=== PATIENT | male | born 1960 | race Caucasian/White ===

== ENCOUNTER 2017-02-14 14:30 | Inpatient (IN) | payer OTHER ==
[2017-02-13 16:40] VITALS: Ht 152.4 cm; Wt 49.8 kg
[~2017-02-14] VITALS: Ht 152.4 cm; Wt 49.8 kg
[2017-02-14] VITALS (9 sets, daily range): BP systolic 121–169; BP diastolic 52–88; PULSE 46–70; RESP 7–16
[~2017-02-14 14:30] MED LIST: ASPI-535 PO; ATOR40TA68 PO; CEFAZOLIN 1 GM INJ ONE; CLON-429 PO; DEXAMETHASONE 4 MG/ML 1 ML INJ ONE; DIVA500T7 PO; GLYCOPYRROLATE 0.4 MG INJ ONE; HYDR-3612 PO; LIDOCAINE 2% (SDV) 5 ML INJ ONE; MIRT45TA PO; NEOSTIGMINE 3 MG/3 ML SYRINGE ONE; ONDANSETRON 4 MG INJ ONE; QUET200T4 PO; TEMA30CA6 PO; TRAZ50TA18 PO
[2017-02-14 15:41] LABS: BASOPHIL # 0.1 10^3/ul (0.0-0.1); BASOPHILS % 0.5 % (0.0-2.0); EOSINOPHILS # 0.2 10^3/ul (0.0-0.5); EOSINOPHILS % 1.4 % (0.0-7.0); HEMATOCRIT 45.3 % (42.0-52.0); HEMOGLOBIN 15.5 g/dl (14.0-18.0); LYMPHOCYTES # 3.6 10^3/ul (0.8-2.9); LYMPHOCYTES % 27.1 % (15.0-51.0); MEAN CORPUSCULAR HEMOGLOBIN 33.7 pg (29.0-33.0); MEAN CORPUSCULAR HGB CONC 34.2 g/dl (32.0-37.0); MEAN CORPUSCULAR VOLUME 98.5 fl (82.0-101.0); MONOCYTE # 0.7 10^3/ul (0.3-0.9); MONOCYTES % 5.3 % (0.0-11.0); NEUTROPHIL # 8.7 10^3/ul (1.6-7.5); PLATELET COUNT 258 10^3/UL (140-415); RED CELL DISTRIBUTION WIDTH 13.2 % (11.5-14.5); WHITE BLOOD COUNT 13.3 10^3/ul (4.8-10.8)
[2017-02-14 15:56] LABS: INR 1.02; PROTIME 13.5 Sec (11.9-14.9); PT RATIO 1.1
[2017-02-14 15:57] LABS: PARTIAL THROMBOPLASTIN TIME 32.6 Sec (25.0-35.0)
[2017-02-14 16:00] LABS: ALBUMIN/GLOBULIN RATIO 1.08; BILIRUBIN,INDIRECT 0.3 mg/dl (0-1.1); BILIRUBIN,TOTAL 0.3 mg/dl (0.2-1.3); CALCIUM 9.7 mg/dl (8.4-10.2); CREATININE 1.07 mg/dl (0.61-1.24); POTASSIUM 4.8 mmol/L (3.5-5.1); TOTAL PROTEIN 7.7 g/dl (6.1-8.1)
[2017-02-14 16:04] LABS: HOLD TRANSMISSIONS 1
--- NOTE | 2017-02-14 16:11 | RADRPT ---
Vent Rate: 58 bpm RR Interval: 0 msec AL Interval: 138 msec QRS Duration: 86 msec QT Interval: 378 msec QTC Interval: 371 msec P-R-T [place]: 68 - 43 - 66 degrees Sinus bradycardia Otherwise normal ECG Electronically Signed By: Sae Keith [id number]
[2017-02-14] MEDS ORDERED: CEFAZOLIN 1 GM INJ ONE (16:18)
[2017-02-14] MEDS ORDERED: HEPARIN 1000 UNITS/ML 10 ML INJ ONE (16:18)
[2017-02-14] MEDS ORDERED: THROMBIN 5000 UNIT VIAL ONE (16:18)
[2017-02-14] MEDS ORDERED: GELATIN SIZE 100 SPONGE ONE (16:18)
[2017-02-14] MEDS ORDERED: PROPOFOL 20 ML ONE (16:25)
[2017-02-14] MEDS ORDERED: ROCURONIUM 50 MG INJ ONE (16:26)
[2017-02-14] MEDS ORDERED: DIPHENHYDRAMINE 50 MG INJ IV PRN ×2 (16:30→20:00)
[2017-02-14] MEDS ORDERED: MIDAZOLAM 1 MG/ML 2 ML INJ IV PRN ×2 (16:30→20:00)
[2017-02-14] MEDS ORDERED: METOCLOPRAMIDE 10 MG INJ IV PRN ×2 (16:30→20:00)
[2017-02-14] MEDS ORDERED: EPHEDrine SULFATE 50 MG/5 ML SYG IV PRN ×2 (16:30→20:00)
[2017-02-14] MEDS ORDERED: hydrALAzine 20 MG INJ IV PRN ×2 (16:30→20:00)
[2017-02-14] MEDS ORDERED: ALBUTEROL 0.083% (NEB) 2.5 MG/3 ML AMP HHN PRN ×2 (16:30→20:00)
[2017-02-14] MEDS ORDERED: KETOROLAC 30 MG INJ IV PRN (16:30)
[2017-02-14] MEDS ORDERED: ONDANSETRON 4 MG INJ IV PRN ×2 (16:30→20:00)
[2017-02-14] MEDS ORDERED: HYDROmorphONE (0.2 MG/ML) 10ML SYG IV PRN ×3 (16:30)
[2017-02-14] MEDS ORDERED: FENTAnyl 50 MCG/ML VIAL IV PRN ×3 (16:30)
[2017-02-14] MEDS ORDERED: MEPERIDINE 25 MG INJ IV PRN ×2 (16:30→20:00)
[2017-02-14] MEDS ORDERED: LABETALOL HCL 20MG INJ IV PRN ×2 (16:30→20:00)
--- NOTE | 2017-02-14 16:54 | RADRPT ---
PROCEDURE: XR Chest. CLINICAL INDICATION: Preop. TECHNIQUE: Single frontal view of the chest was obtained. COMPARISON: None FINDINGS: The cardiomediastinal silhouette is normal in size. There are aortic calcifications. No focal consolidation is seen. No pleural effusion is seen. No definite pneumothorax. No acute osseous abnormality. Incompletely imaged cervical fusion hardware. IMPRESSION: No radiographic evidence of an acute cardiopulmonary process. RPTAT: AAEE Nadine Lane Physician Date Time Electronically viewed and signed by Nadine Lane Physician on 02/14/2017 16:54 PH/
[2017-02-14] MEDS ORDERED: FENTAnyl 50 MCG/ML VIAL ONE ×2 (17:04→19:33)
[2017-02-14] MEDS ORDERED: morphine 10 MG INJ ONE (17:49)
--- NOTE | 2017-02-14 17:51 | HPN ---
Date/Time of Note Date/Time of Note DATE: 02/14/17 TIME: 17:49 Interval H&P Admission Note Pt. seen H&P reviewed: No system changes Extensive d/w patient about all available options including surgery vs no surgery. Overall risk/complications 3-5% discussed. All questions answered and no guarantees given. ANNI VARGAS MD Feb 14, 2017 17:51
[2017-02-14] MEDS ORDERED: LABETALOL HCL 20MG INJ ONE (18:20)
[2017-02-14] MEDS ORDERED: MIDAZOLAM 1 MG/ML 2 ML INJ ONE (18:25)
[2017-02-14] MEDS ORDERED: ACETAMINOPHEN 325 MG TAB PO PRN (18:30)
[2017-02-14] MEDS ORDERED: NALOXONE (0.4 MG/ML) INJ IV PRN (18:30)
[2017-02-14] MEDS ORDERED: HYDROCODONE/APAP (5/325) TAB PO PRN (18:30)
[2017-02-14] MEDS: CEFAZOLIN 1 GM/50 ML (PMX) 50 ML IVPB SCH (18:30)
[2017-02-14] MEDS ORDERED: KETOROLAC 30 MG INJ ONE (19:23)
--- NOTE | 2017-02-14 19:28 | OPPN ---
Date/Time of Note Date/Time of Note DATE: 02/14/17 TIME: 19:25 Operative Report Preoperative Diagnosis mechanical LBP and LE radiculopathy Postoperative Diagnosis same Operation/Procedure Performed ALIF L4,5 and L5 S1 with removal of cages Surgeon see signature line floral assistant malekmehr Second assist: ARMANDO TOMLINSON NP Anesthesia: general Estimated blood loss: 200 - 250 ml's Transfusion Required none Specimen sent discs Grafts/Implants Nuvasive cages Complications none ANNI VARGAS MD Feb 14, 2017 19:28
[2017-02-14] MEDS ORDERED: HYDROmorphONE 0.5 MG/0.5 ML SYG IV PRN ×2 (20:00)
[2017-02-14] MEDS: HYDROmorphONE 1 MG/ML SYG IV PRN ×3 (20:19→23:31)
[2017-02-14 22:19] LABS: ABNORMAL IP MESSAGE 1; HEMATOCRIT 40.1 % (42.0-52.0); HEMOGLOBIN 13.6 g/dl (14.0-18.0); MEAN CORPUSCULAR HEMOGLOBIN 33.5 pg (29.0-33.0); MEAN CORPUSCULAR HGB CONC 33.9 g/dl (32.0-37.0); MEAN CORPUSCULAR VOLUME 98.8 fl (82.0-101.0); PLATELET COUNT 235 10^3/UL (140-415); POSITIVE DIFF @See below; RED BLOOD COUNT 4.06 10^6/ul (4.70-6.10); WHITE BLOOD COUNT 25.2 10^3/ul (4.8-10.8)
[2017-02-14 22:35] LABS: CALCIUM 8.7 mg/dl (8.4-10.2); CREATININE 1.18 mg/dl (0.61-1.24); POTASSIUM 4.5 mmol/L (3.5-5.1)
--- NOTE | 2017-02-14 22:48 | RADRPT ---
PROCEDURE: Fluoroscopy services. CLINICAL INDICATION: Low back pain. TECHNIQUE: Fluoroscopy services during L4-5 anterior corpectomy. COMPARISON: None FINDINGS: Fluoroscopy services during L4-5 anterior corpectomy. Multiple intraoperative spot films were obtain ed at intermediate stages during this procedure and demonstrate placement of fixation over the anter ior and posterior aspects of the lower lumbar spine. 18.0 seconds of fluoroscopy time were employed during this procedure. IMPRESSION: Fluoroscopy services during L4-5 anterior corpectomy. RPTAT: [facility] Physician Greg Date Time Electronically viewed and signed by Physician Greg on 02/14/2017 22:48 RS/
[2017-02-15] VITALS (39 sets, daily range): BP systolic 96–152; BP diastolic 31–71; PULSE 43–72; RESP 8–25
[2017-02-15] MEDS: SOD CHLORIDE 0.9% 1,000 ML IV SCH ×2 (00:28→10:15)
[2017-02-15] MEDS: CEFAZOLIN 1 GM/50 ML (PMX) 50 ML IVPB SCH ×3 (00:38→12:02)
[2017-02-15 01:48] LABS: EOSINOPHILS # 0.5 10^3/ul (0.0-0.5); EOSINOPHILS % (M) 2 % (0.0-7.0); LYMPHOCYTES # 3.5 10^3/ul (0.8-2.9); MONOCYTE # 1.3 10^3/ul (0.3-0.9); MONOCYTES % (M) 5 % (0-11)
[2017-02-15 01:49] LABS: PLATELET ESTIMATE NORMAL
[2017-02-15] MEDS: HYDROmorphONE 0.5 MG/0.5 ML SYG IV PRN ×5 (02:39→23:17)
--- NOTE | 2017-02-15 03:39 | CONS ---
DATE OF ADMISSION: 02/14/2017 DATE OF CONSULTATION: REASON FOR CONSULTATION: Surgical. Thank you, Dr. Rios, for asking me to see this patient. HISTORY OF PRESENT ILLNESS: The patient is a 56-year-old male with a history of lumbosacral disk sp ine disease who is undergoing anterior retroperitoneal exposure and interbody fusion at the level of L4-L5 and L5-S1. PAST MEDICAL HISTORY: Significant for hypertension, lumbosacral disease. PAST SURGICAL HISTORY: Spine surgery. ALLERGIES: NONE. SOCIAL HISTORY: No smoking, drinking or drug use. MEDICATIONS: List reviewed. PHYSICAL EXAMINATION: VITAL SIGNS: Blood pressure is 110/60, pulse is 80, respiration is 18. CARDIOVASCULAR: Normal S1, S2. LUNGS: Clear. ABDOMEN: Soft. EXTREMITIES: Warm. IMPRESSION: Degenerative disk disease of the lumbosacral spine. RECOMMENDATIONS: We will proceed with anterior retroperitoneal exposure and interbody fusion of the lumbosacral spine. Risks, benefits, complications, alternative therapies explained to the patient, consent obtained. Risks and benefits that were explained to the patient included but not limited t o infection, bleeding, damage to the bowel, damage to ureter, wound infection, wound dehiscence, DVT , PE, loss of limb, loss of life, retrograde ejaculation, sexual dysfunction, need for further surge antelmo, pain issues. All questions answered. High risk nature of the stressed to the patient and the family. Dictated By: STEPHANIE GREGG/FORTUNATO Conf#: [id number] DID#: [id number] CC: ANNI RIOS MD;*EndCC*
--- NOTE | 2017-02-15 03:52 | OPR ---
DATE OF OPERATION: PREOPERATIVE DIAGNOSIS: Degenerative disk disease, lumbosacral spine. POSTOPERATIVE DIAGNOSIS: Degenerative disk disease, lumbosacral spine. OPERATION PERFORMED: 1. Anterior retroperitoneal exposure, interbody fusion, lumbosacral spine L4-L5. 2. Anterior retroperitoneal exposure, interbody fusion, L5-S1. SURGEON: Stephanie Pascal MD CO-SURGEON: Maria Alejandra Rios MD ANESTHESIA: General. ESTIMATED BLOOD LOSS: 400 mL. INFORMED CONSENT: Risks, benefits, complications, alternative therapies, high-risk nature of the op eration were fully explained to the patient and the family, consent obtained. Risks and benefits th at were explained to the patient and the family included but not limited to bleeding, infection, dam age to bowel, damage to aorta, retrograde ejaculation, sexual dysfunction, erectile dysfunction, DVT , PE, loss of limb, loss of life, atherosclerotic debris to the foot and others. All questions answ ered. OPERATIVE TECHNIQUE: The patient was placed in supine position, prepped and draped in usual sterile fashion. Time-out was called, antibiotic was given. I made an 8 cm incision in the left lower may drant and incision was taken down to subcutaneous tissue, which was opened using electrocautery. Le ft anterior rectus sheath was opened in the direction of the wound. Posterior rectus sheath was ope kim superiorly. Bookwalter retractor was placed retracting the bowel contents to the right and left rectus muscle to left. I dissected the left common iliac artery and vein. The middle sacral vessel s on the left, iliolumbar, vein, artery and lower segmental and this was on the left, ligated using 2-0 silk sutures and titanium clips. Exposure for L4-L5 was obtained by retracting the vena cava an d aorta to the right. Exposure for 5-1 was between the right and left common iliac artery and vein. After the fusions were done, all needle counts and sponge counts were correct. No evidence of any bleeding was noted. The wound was irrigated using antibiotic solution. Posterior rectus sheath was closed using 0 Vicryl suture in a running fashion. Anterior rectus sheath was closed using #1 Vicr yl suture in a running fashion. The wound was irrigated and closed in 2 layers of 2-0 Vicryl suture for subq and Steri-Strips for the skin. Patient tolerated the procedure well. Dictated By: STEPHANIE PASCAL MD FM/NTS Conf#: [id number] [facility]#: [id number]
[2017-02-15 05:05] LABS: HEMATOCRIT 34.9 % (42.0-52.0); HEMOGLOBIN 12.2 g/dl (14.0-18.0)
[2017-02-15 05:38] LABS: CALCIUM 8.4 mg/dl (8.4-10.2); CREATININE 1.16 mg/dl (0.61-1.24); POTASSIUM 5.1 mmol/L (3.5-5.1)
[2017-02-15] MEDS ORDERED: HYDROmorphONE 0.5 MG/0.5 ML SYG IM ONE (06:00)
[2017-02-15] MEDS ORDERED: HYDROmorphONE 0.5 MG/0.5 ML SYG IV ONE (06:05)
[2017-02-15] MEDS: KETOROLAC 30 MG INJ IM PRN ×2 (08:33→14:23)
--- NOTE | 2017-02-15 11:19 | RADRPT ---
PROCEDURE: CT Lumbar Spine without intravenous contrast CLINICAL INDICATION: Status post L4-5 anterior corpectomy discectomy and fusion. COMPARISON: Intraoperative fluoroscopic examination 02/14/2017. TECHNIQUE: Axial noncontrast CT images of the lumbar spine with coronal and sagittal reformats. DOSE ESTIMATE: CTDI vol = 10.19 mGy. DLP = 2094.93 mGy-cm. One or more of the following dose reduc tion techniques were used: automated exposure control, adjustment of the mA and/or kV according to p atient size, or use of iterative reconstruction. DICOM images are available. FINDINGS: Segmentation: For this report the last well-formed disc is labeled L5-S1. Alignment: Trace retrolisthesis of L2 relative to L3. Vertebrae: No fracture, vertebral body height loss, or destructive bone lesion. Discs: Mild disc space loss L2-L3. T12-L1: No disc herniation. No spinal canal or foraminal narrowing. L1-L2: Trace disc bulge without herniation. No spinal canal or foraminal narrowing. L2-L3: Trace disc bulge without herniation. No spinal canal or foraminal narrowing. Beam hardening a rtifact associated with interspinous fusion device between L3 and L4 is present. L3-L4: Trace disc bulge without disc herniation. No spinal canal or foraminal narrowing. Beam harden ing artifact associated with interspinous fusion device between L3 and L4. L4-L5: Anterior lumbar fusion with 4 surgical screws oriented obliquely into the L4 and L5 vertebral bodies. L4 right paracentral corpectomy, well positioned intervening bone graft and 2 metal spacers , and interspinous fusion device between L4 and L5. Extensive beam hardening artifact obscures eval uation of the central canal on the axial views. The foramina are adequately patent. L5-S1: Anterior lumbar fusion with 4 surgical screws oriented obliquely into the L5 and S1 vertebral bodies. Well-positioned intervening bone graft and 2 metal spacers are present. Interspinous fusion between L5 and S1. Beam hardening artifact limits assessment of the central canal. The foramina are adequately patent. Para-vertebral soft tissues: Small amounts of postoperative pneumoperitoneum present within the prev ertebral spaces of L4 through S1. Left-sided pneumoperitoneum surrounds the psoas muscle and also ex tend between the psoas and iliacus muscles. Visualized abdomen and pelvis: Normal. Additional comment: Geographic sclerotic lesion measuring 12 mm located in the left iliac crest. The adjacent cortex is intact. IMPRESSION: 1. L4-L5: Anterior lumbar fusion, right paracentral corpectomy, well positioned intervening bone g raft, 2 metal spacers and interspinous fusion device present. Associated beam-hardening artifact chavez its assessment of the central canal. The foramina are adequately patent. 2. L5-S1: Anterior lumbar fusion with 4 surgical screws, well-positioned intervening bone graft an d 2 metal spacers , and interspinous fusion device present. Associated beam hardening artifact limit s assessment of the central canal. The foramina are adequately patent. 3. Small amounts of postsurgical pneumoperitoneum located within the prevertebral space of L4-S1, adams rrounding the left psoas muscle extending between the left psoas and iliacus muscles. RPTAT: HRSR Physician Kunal Date Time Electronically viewed and signed by Physician Kunal on 02/15/2017 11:19 RR/
--- NOTE | 2017-02-15 11:43 | HP ---
Date/Time of Note Date/Time of Note DATE: 02/15/17 TIME: 11:42 Assessment/Plan VTE Prophylaxis VTE Prophylaxis Intervention: other Lines/Catheters IV Catheter Type (from Nrsg): Peripheral IV Urinary Cath still in place: Yes Reason Cath still needed: skin wounds contaminated by urine Assessment/Plan Chief Complaint/Hosp Course 1) back pain - s/p LS spinal fusion - monitor clinically Problems: HPI/ROS Admit Date/Time Admit Date/Time Feb 14, 2017 at 14:30 Hx of Present Illness 56 year old male with back pain who is here for LS spinal fusion. Patient tolerated the procedure and is being monitored postop. PMH/Family/Social Past Medical History Medical History: no pertinent history Social History Smoking Status: Never smoker Exam/Review of Systems Vital Signs Vitals Vital Signs Date Time Temp Pulse Resp B/P Pulse Ox O2 Delivery O2 Flow Rate FiO2 02/15/17 08:30 58 12 134/49 99 Room Air 02/15/17 08:00 97.9 2.0 02/15/17 01:33 27 Intake and Output 02/14/17 02/14/17 02/15/17 15:00 23:00 07:00 Intake Total 1250 ml 800 ml Output Total 670 ml 130 ml Balance 580 ml 670 ml Exam Constitutional: well developed Head: atraumatic, normocephalic Neck: supple Respiratory: clear to auscultation Cardiovascular: regular rate and rhythm Gastrointestinal: non-tender, soft Extremities: normal pulses Labs Result Diagram: 02/15/17 0400 02/15/17 0400 Medications Medications Current Medications Acetaminophen/ Hydrocodone Bitart 1 tab 1 tab Q4H PRN PO PAIN LEVEL 1-5; Start 02/14/17 at 18:30 Cefazolin Sodium (Ancef 1 Gm/50 ml (Pmx)) 50 ml @ 100 mls/hr Q6 IVPB Last administered on 02/15/17t 05:56; Admin Dose 100 MLS/HR; Start 02/14/17 at 18: 30; Stop 02/15/17 at 12:29 Acetaminophen (Tylenol Tab) 650 mg Q4H PRN PO TEMP GREATER THAN 101F OR VALLEJO; Start 02/14/17 at 18:30 Naloxone HCl (Narcan) 0.2 mg Q2M PRN IV RR 8 BREATHS/MIN OR LESS; Start at 18:30 Hydromorphone HCl 0.5 mg 0.5 mg Q4H PRN IV PAIN Last administered on 08:06; Admin Dose 0.5 MG; Start 02/14/17 at 18:30 Sodium Chloride (NS) 1,000 ml @ 100 mls/hr Q10H IV Last administered on 10:15; Admin Dose 100 MLS/HR; Start 02/14/17 at 23:30 Ketorolac Tromethamine (Toradol) 30 mg ONCE PRN IM MODERATE PAIN LEVEL 4-6 Last administered on 02/15/17 08:33; Admin Dose 30 MG; Start 02/15/17 at 08: 30; Stop 02/18/17 at 08:29 TAMIKO COLE Feb 15, 2017 11:43
--- NOTE | 2017-02-15 16:24 | PN ---
Date/Time of Note Date/Time of Note DATE: 02/15/17 TIME: 16:20 Assessment/Plan VTE Prophylaxis VTE Prophylaxis Intervention: SCD's Lines/Catheters IV Catheter Type (from Nrsg): Peripheral IV Central line still needed: No Urinary Cath still in place: No Assessment/Plan Chief Complaint/Hosp Course s/p L4-S1 ALIF. POD #1 Intraop findings showed severe calcification , unable to expose L3-[address] Lspine - stable findings . Plan change narcotics dc toradol awaiting LSO brace dc heather dc fc dc planning once pain better controlled. Problems: Subjective 24 Hr Interval Summary Free Text/Dictation S; s/p L4-S1 ALIF. POD #1 doing well Exam/Review of Systems Vital Signs Vitals Vital Signs Date Time Temp Pulse Resp B/P Pulse Ox O2 Delivery O2 Flow Rate FiO2 02/15/17 12:00 57 02/15/17 11:30 14 129/45 100 Room Air 02/15/17 08:00 97.9 2.0 02/15/17 01:33 27 Intake and Output 02/14/17 02/14/17 02/15/17 15:00 23:00 07:00 Intake Total 1250 ml 800 ml Output Total 670 ml 130 ml Balance 580 ml 670 ml Exam Neurological: other (MS: AAOX4 CN: PERRL M: FC x 4, 5/5 strength ) Results Result Diagram: 02/15/17 0400 02/15/17 0400 Results 24 hrs Laboratory Tests Test 02/14/17 22:06 02/15/17 04:00 White Blood Count 25.2 #H Red Blood Count 4.06 L Hemoglobin 13.6 L 12.2 L Hematocrit 40.1 L 34.9 L Mean Corpuscular Volume 98.8 Mean Corpuscular Hemoglobin 33.5 H Mean Corpuscular Hemoglobin Concent 33.9 Red Cell Distribution Width 13.0 Platelet Count 235 Mean Platelet Volume 11.0 H Neutrophils % Segmented Neutrophils % (Manual) 74 Band Neutrophils % (Manual) 5 H Lymphocytes % Lymphocytes % (Manual) 14 L Monocytes % Monocytes % (Manual) 5 Eosinophils % Eosinophils % (Manual) 2 Basophils % Nucleated Red Blood Cells % 0.0 Neutrophils # Neutrophils # (Manual) 19.0 H Band Neutrophils # 1.2 H Absolute Lymphocytes (Manual) 3.5 H Lymphocytes # 3.5 H Monocytes # 1.3 H Absolute Monocytes (Manual) 1.2 H Eosinophils # 0.5 Basophils # Nucleated Red Blood Cells # Platelet Estimate NORMAL Sodium Level 135 138 Potassium Level 4.5 5.1 Chloride Level 103 107 Carbon Dioxide Level 24 24 Anion Gap 13 12 Blood Urea Nitrogen 28 H 29 H Creatinine 1.18 1.16 Glucose Level 88 74 Calcium Level 8.7 8.4 Medications Medications Current Medications Acetaminophen/ Hydrocodone Bitart ([place] (5/325)) 1 tab Q4H PRN PO PAIN LEVEL 1 -5 Last administered on 02/15/17 12:06; Admin Dose 1 TAB; Start 02/14/17 at 18:30 Acetaminophen (Tylenol Tab) 650 mg Q4H PRN PO TEMP GREATER THAN 101F OR VALLEJO; Start 02/14/17 at 18:30 Naloxone HCl (Narcan) 0.2 mg Q2M PRN IV RR 8 BREATHS/MIN OR LESS; Start at 18:30 Hydromorphone HCl 0.5 mg 0.5 mg Q4H PRN IV PAIN Last administered on 12:02; Admin Dose 0.5 MG; Start 02/14/17 at 18:30 Sodium Chloride (NS) 1,000 ml @ 100 mls/hr Q10H IV Last administered on 10:15; Admin Dose 100 MLS/HR; Start 02/14/17 at 23:30 Ketorolac Tromethamine (Toradol) 30 mg ONCE PRN IM MODERATE PAIN LEVEL 4-6 Last administered on 02/15/17 14:23; Admin Dose 30 MG; Start 02/15/17 at 08: 30; Stop 02/18/17 at 08:29 ARMANDO TOMLINSON NP Feb 15, 2017 16:24
[2017-02-15] MEDS: HYDROCODONE/APAP (10/325) TAB PO PRN ×2 (16:42→21:58)
[2017-02-16] MEDS: HYDROmorphONE 0.5 MG/0.5 ML SYG IV PRN ×6 (02:40→19:01)
[2017-02-16] MEDS: HYDROCODONE/APAP (10/325) TAB PO PRN ×5 (03:28→21:19)
[2017-02-16 08:30] VITALS: BP 129/62; RESP 18
--- NOTE | 2017-02-16 12:22 | PN ---
Date/Time of Note Date/Time of Note DATE: 02/16/17 TIME: 12:21 Assessment/Plan VTE Prophylaxis VTE Prophylaxis Intervention: other Lines/Catheters IV Catheter Type (from Nrsg): Peripheral IV Urinary Cath still in place: Yes Reason Cath still needed: skin wounds contaminated by urine Assessment/Plan Chief Complaint/Hosp Course 1) back pain - s/p LS spinal fusion - monitor clinically Problems: Subjective 24 Hr Interval Summary Free Text/Dictation Patient complain of abdominal pain, at site of surgery Exam/Review of Systems Vital Signs Vitals Vital Signs Date Time Temp Pulse Resp B/P Pulse Ox O2 Delivery O2 Flow Rate FiO2 02/16/17 08:30 98.2 78 18 129/62 99 02/15/17 21:00 Room Air 02/15/17 17:30 2.0 02/15/17 01:33 27 Intake and Output 02/15/17 02/15/17 02/16/17 15:00 23:00 07:00 Intake Total 850 ml 450 ml 950 ml Output Total 350 ml 900 ml Balance 850 ml 100 ml 50 ml Exam Constitutional: well developed Head: atraumatic, normocephalic Neck: supple Respiratory: clear to auscultation Cardiovascular: regular rate and rhythm Gastrointestinal: non-tender, soft Extremities: normal pulses Results Result Diagram: 02/15/17 0400 02/15/17 0400 Medications Medications Current Medications Acetaminophen (Tylenol Tab) 650 mg Q4H PRN PO TEMP GREATER THAN 101F OR VALLEJO; Start 02/14/17 at 18:30 Naloxone HCl (Narcan) 0.2 mg Q2M PRN IV RR 8 BREATHS/MIN OR LESS; Start at 18:30 Acetaminophen/ Hydrocodone Bitart ([place] (10/325)) 2 tab Q4H PRN PO PAIN LEVEL 1-5 Last administered on 02/16/17 07:52; Admin Dose 2 TAB; Start 02/15/17 at 16:30 Hydromorphone HCl (Dilaudid) 0.5 mg Q2 PRN IV PAIN LEVEL 6-10 Last administered on 02/16/17 11:26; Admin Dose 0.5 MG; Start 02/15/17 at 16:30 TAMIKO COLE Feb 16, 2017 12:22
[2017-02-16 14:18] VITALS: BP 114/58; RESP 14
[2017-02-16 20:21] VITALS: BP 127/58; RESP 20
[2017-02-17] MEDS: HYDROCODONE/APAP (10/325) TAB PO PRN ×5 (01:11→22:11)
[2017-02-17 02:32] VITALS: BP 122/57; RESP 18
[2017-02-17] MEDS: HYDROmorphONE 2 MG TAB PO PRN ×9 (04:43→22:46)
[2017-02-17 08:34] VITALS: BP 140/64; RESP 18
--- NOTE | 2017-02-17 11:46 | PN ---
Date/Time of Note Date/Time of Note DATE: 02/17/17 TIME: 11:45 Assessment/Plan VTE Prophylaxis VTE Prophylaxis Intervention: other Lines/Catheters IV Catheter Type (from Nrsg): Saline Lock Urinary Cath still in place: Yes Reason Cath still needed: skin wounds contaminated by urine Assessment/Plan Chief Complaint/Hosp Course 1) back pain - s/p LS spinal fusion - monitor clinically Problems: Subjective 24 Hr Interval Summary Free Text/Dictation Continues to have pain in abdomen at the site of incision. He was able to ambulate yesterday Exam/Review of Systems Vital Signs Vitals Vital Signs Date Time Temp Pulse Resp B/P Pulse Ox O2 Delivery O2 Flow Rate FiO2 02/17/17 08:34 98.3 57 18 140/64 94 02/15/17 21:00 Room Air 02/15/17 17:30 2.0 02/15/17 01:33 27 Intake and Output 02/16/17 02/16/17 02/17/17 15:00 23:00 07:00 Intake Total 600 ml Output Total 900 ml Balance -300 ml Exam Constitutional: well developed Head: atraumatic, normocephalic Neck: supple Respiratory: clear to auscultation Cardiovascular: regular rate and rhythm Gastrointestinal: non-tender, soft Extremities: normal pulses Results Result Diagram: 02/15/1739902/15/17 0400 Medications Medications Current Medications Acetaminophen (Tylenol Tab) 650 mg Q4H PRN PO TEMP GREATER THAN 101F OR VALLEJO; Start 02/14/17 at 18:30 Naloxone HCl (Narcan) 0.2 mg Q2M PRN IV RR 8 BREATHS/MIN OR LESS; Start at 18:30 Acetaminophen/ Hydrocodone Bitart ([place] (10/325)) 2 tab Q4H PRN PO PAIN LEVEL 1-5 Last administered on 02/17/17 08:21; Admin Dose 2 TAB; Start 02/15/17 at 16:30 Hydromorphone HCl (Dilaudid) 2 mg Q2 PRN PO PAIN LEVEL 6-10 Last administered on 02/17/17 11:07; Admin Dose 2 MG; Start 02/17/17 at 01:52 TAMIKO COLE Feb 17, 2017 11:46
[2017-02-17 19:40] VITALS: BP 109/56; RESP 16
[2017-02-18] MEDS: HYDROmorphONE 2 MG TAB PO PRN ×6 (00:36→16:29)
[2017-02-18 01:39] VITALS: BP 106/60; RESP 16
[2017-02-18 08:29] VITALS: BP 138/74; RESP 18
[2017-02-18] MEDS: HYDROCODONE/APAP (10/325) TAB PO PRN ×4 (09:35→22:27)
--- NOTE | 2017-02-18 13:23 | PN ---
Date/Time of Note Date/Time of Note DATE: 02/18/17 TIME: 13:22 Assessment/Plan VTE Prophylaxis VTE Prophylaxis Intervention: other Lines/Catheters IV Catheter Type (from Nrsg): Saline Lock Urinary Cath still in place: Yes Reason Cath still needed: skin wounds contaminated by urine Assessment/Plan Chief Complaint/Hosp Course 1) back pain - s/p LS spinal fusion - monitor clinically Problems: Subjective 24 Hr Interval Summary Free Text/Dictation Patient still have some abdominal pain Exam/Review of Systems Vital Signs Vitals Vital Signs Date Time Temp Pulse Resp B/P Pulse Ox O2 Delivery O2 Flow Rate FiO2 02/18/17 08:29 98.3 56 18 138/74 95 02/15/17 21:00 Room Air 02/15/17 17:30 2.0 02/15/17 01:33 27 Intake and Output 02/17/17 02/17/17 02/18/17 15:00 23:00 07:00 Intake Total 850 ml 960 ml 1800 ml Output Total 1200 ml 950 ml 1700 ml Balance -350 ml 10 ml 100 ml Exam Constitutional: well developed Head: atraumatic, normocephalic Neck: supple Respiratory: clear to auscultation Cardiovascular: regular rate and rhythm Gastrointestinal: non-tender, soft Extremities: normal pulses Results Result Diagram: 02/15/17 0400 02/15/17 040 Medications Medications Current Medications Acetaminophen (Tylenol Tab) 650 mg Q4H PRN PO TEMP GREATER THAN 101F OR VALLEJO; Start 02/14/17 at 18:30 Naloxone HCl (Narcan) 0.2 mg Q2M PRN IV RR 8 BREATHS/MIN OR LESS; Start at 18:30 Acetaminophen/ Hydrocodone Bitart ([place] (10/325)) 2 tab Q4H PRN PO PAIN LEVEL 1-5 Last administered on 02/18/17 09:35; Admin Dose 2 TAB; Start 02/15/17 at 16:30 Hydromorphone HCl (Dilaudid) 2 mg Q2 PRN PO PAIN LEVEL 6-10 Last administered on 02/18/17 10:56; Admin Dose 2 MG; Start 02/17/17 at 01:52 TAMIKO COLE Feb 18, 2017 13:23
[2017-02-18 16:20] VITALS: BP 122/73; RESP 18
[2017-02-18 20:29] VITALS: BP 116/63; RESP 20
[2017-02-19] MEDS: HYDROCODONE/APAP (10/325) TAB PO PRN ×3 (02:32→12:36)
[2017-02-19 02:52] VITALS: BP 122/75; RESP 18
[2017-02-19 07:24] VITALS: BP 130/60; RESP 20
--- NOTE | 2017-02-19 12:08 | DS ---
Date/Time of Note Date/Time of Note DATE: 02/19/17 TIME: 12:05 Discharge Summary Admission/Discharge Info Admit Date/Time Feb 14, 2017 at 14:30 Discharge Date/Time 02/19/17 Patient Condition: Fair Consults neurosurgery Procedures LS spine fusion Hx of Present Illness 56 year old male with back pain who is here for LS spinal fusion. Patient tolerated the procedure and is being monitored postop. Hospital Course Patient with back pain comes in for spinal fusion. Patient tolerated the procedure and when felt to be stable he was discharged home. 1) back pain - s/p LS spinal fusion - monitor clinically Home Meds Reported Medications Atorvastatin* (Atorvastatin*) 40 Mg Tablet, 40 MG PO DAILY 06/17/13 Aspirin Ec (Aspir 81) 81 Mg Tablet.dr, 81 MG PO DAILY 06/17/13 Clonazepam* (Klonopin*) 0.5 Mg Tab, 0.5 MG PO DAILY, TAB 06/17/13 Quetiapine Fumarate* (Seroquel* XR) 200 Mg Tab.sr.24h, 200 MG PO HS 06/17/13 Trazodone Hcl* (Trazodone Hcl*) 50 Mg Tablet, 50 MG PO HS 06/17/13 Temazepam* (Restoril*) 30 Mg Capsule, 30 MG PO HS for INSOMNIA 06/17/13 Mirtazapine* (Mirtazapine* ODT) 45 Mg/Udtablet Tab.rapdis, 45 MG PO HS 06/17/13 Divalproex Sodium* (Depakote ER*) 500 Mg Tabsr, 1000 MG PO DAILY 06/17/13 Hydrocodone Bit-Acetaminophen* ([place]*) 1 Tab Tab, 1 TAB PO Q6 Y for PAIN LEVEL 6-10, TAB 06/17/13 Primary Care Provider Not On Staff Doctor TAMIKO COLE Feb 19, 2017 12:08
[2017-02-19] MEDS ORDERED: METHYLPREDNISOLONE (MEDROL) DOSE PACK PO SCH (12:30)
[2017-02-19] MEDS ORDERED: METHYLPREDNISOLONE 4 MG TAB PO SCH (12:30)
[2017-02-20] MEDS ORDERED: METHYLPREDNISOLONE 4 MG TAB PO SCH ×4 (07:20→21:00)
[2017-02-21] MEDS ORDERED: METHYLPREDNISOLONE 4 MG TAB PO SCH (21:00)
== END 2017-02-19 15:00 | disposition home or self-care (01) | DRG 460 ==
LOC: REC 14:30 → ICU 19:45 → MS1 02-15 21:20
PROVIDERS: ADMIT Neurological Surgery; ATTEND Neurological Surgery
PROC: 0SG30A0 Fusion of Lumbosacral Joint with Interbody Fusion Device, Anterior Approach, Anterior Column, Open Approach (ICD-10-PCS; 2017-02-14)
PROC: 0SG00A0 Fusion of Lumbar Vertebral Joint with Interbody Fusion Device, Anterior Approach, Anterior Column, Open Approach (ICD-10-PCS; principal; 2017-02-14 16:30)
DX: M51.17 Intervertebral disc disorders with radiculopathy, lumbosacral region (principal); I10 Essential (primary) hypertension; Z98.1 Arthrodesis status
CPT/HCPCS: 71010; 72114; 72131; 80048; 80053; 85014; 85018; 85025; 85610; 85730; 86850; 86900; 86901; 86920; 88304; 93005; 97116; 97163; 97165; 97530; 97535; C1762; J0690; J1100; J1170; J1644; J1885; J2250; J2270; J2405; J2710; J3010; J7030; J7509; L0639